=== PATIENT | female | born 1970 | race Caucasian/White ===

== ENCOUNTER 2019-07-28 14:54 | Outpatient (CLI) | payer OTHER | END 2019-07-28 23:59 | disposition home or self-care (01) | LOC: CFH 14:54 | PROVIDERS: ATTEND Obstetrics & Gynecology | DX: Z12.31 Encounter for screening mammogram for malignant neoplasm of breast (principal) | CPT/HCPCS: 77063; 77067 ==

== ENCOUNTER → 2020-10-28 | Outpatient (CLI) | payer OTHER | END | disposition home or self-care (01) | LOC: CFH 13:48 | PROVIDERS: ATTEND Obstetrics & Gynecology | DX: Z12.31 Encounter for screening mammogram for malignant neoplasm of breast (principal) | CPT/HCPCS: 77063; 77067 ==